=== PATIENT | male | born 1995 | race Two or more races ===

== ENCOUNTER 2016-12-02 21:11 | Emergency (ER) | payer MEDICAID ==
[~2016-12-02] VITALS: Ht 172.7 cm; Wt 99.8 kg
[2016-12-02 23:28] VITALS: BP 147/64
[2016-12-03] MEDS ORDERED: KETOROLAC TROMETH 30 MG/ML 1ML VIAL IV ONE (00:45)
[2016-12-03] MEDS ORDERED: IBUPROFEN 800 MG TAB PO ONE (01:00)
== END 2016-12-03 00:56 | disposition home or self-care (01) ==
LOC: ER 21:14
DX: S82.001A Unspecified fracture of right patella, initial encounter for closed fracture (principal); S86.911A Strain of unspecified muscle(s) and tendon(s) at lower leg level, right leg, initial encounter; W19.XXXA Unspecified fall, initial encounter; Y93.64 Activity, baseball; Y99.8 Other external cause status; Y92.89 Other specified places as the place of occurrence of the external cause
CPT/HCPCS: 73564